=== PATIENT | male | born 1970 | race Caucasian/White ===

== ENCOUNTER 2019-06-26 00:58 | Emergency (ER) | payer OTHER ==
[2019-06-26] MEDS ORDERED: ACETAMINOPHEN 325 MG TABLET PO ONE (01:15)
--- NOTE | 2019-06-26 02:52 | RADIOLOGY REPORT (SQ) ---
EXAM DESCRIPTION: XR CHEST 2 VIEWS COMPLETED DATE/TME: 06/26/2019 00:00 CLINICAL HISTORY: 48 years, Male, fever; productive cough COMPARISON: None. NUMBER OF VIEWS: 2 TECHNIQUE: 2 view chest LIMITATIONS: None. FINDINGS: Heart size normal. Lungs clear. No pneumothorax IMPRESSION: Negative chest copyright 2010 [employer]- All Rights Reserved
[2019-06-26] MEDS ORDERED: PENICILLIN G BENZATHINE 1.2 MILLION UNIT/2 ML DISP.SYRIN IM ONE (03:03)
[2019-06-26] MEDS ORDERED: DEXAMETHASONE SOD PHOS INJ 10 MG/1 ML VIAL IM ONE (03:08)
--- NOTE | 2019-06-26 03:13 | ER Document Report ---
HPI - HPI Time Seen by Provider: 06/26/19 02:57 Pain Level: 5 Context: 48-year-old male presents emergency department chief complaint fever, chills, sweats, sore throat since Thursday afternoon. Patient states that the symptoms came on suddenly he has pain with swallowing and has a feeling of mucus in the top of his throat. No cough. No shortness of breath, wheezing, no chest pain. No nausea/vomiting/diarrhea. No sick contacts. No other complaints - EENT EENT: REPORTS: Sore Throat Past Medical History - Social History Smoking Status: Current Every Day Smoker Frequency of alcohol use: None Drug Abuse: None Family History: None Patient has suicidal ideation: No Patient has homicidal ideation: No Vertical Provider Document - CONSTITUTIONAL Notes: PHYSICAL EXAMINATION: Reviewed vital signs and charting by RN GENERAL: Alert, interacts well. No acute distress. HEAD: Normocephalic, atraumatic. EYES: Pupils equal and round. Extraocular movements intact. ENT: Oral mucosa moist, tongue midline. 3+ bilateral tonsillar hypertrophy with erythema and bilateral exudate, submandibular lymphadenopathy NECK: Full range of motion. Trachea midline. Cervical lymphadenopathy bilateral LUNGS: Clear to auscultation bilaterally, no wheezes, rales, or rhonchi. No respiratory distress. HEART: Regular rate and rhythm. No murmur ABDOMEN: soft, non-tender. No distention. Bowel sounds present EXTREMITIES: Moves all 4 extremities spontaneously. No edema, No cyanosis. PSYCH: Normal affect, normal mood. SKIN: Warm, dry, normal turgor. No rashes or lesions noted. Course - Re-evaluation Re-evalutation: 06/26/19 03:12 Presentation of several days of sore throat in an otherwise well-appearing patient. Rapid strep is positive. History and exam are not consistent with a retropharyngeal abscess or peritonsillar abscess. Airway is patent. No difficulty handling oral secretions. Vitals within normal limits. Patient has been treated with an IM dose of penicillin. At this time will discharge with return precautions and follow-up recommendations. Verbal discharge instructions given a the bedside and opportunity for questions given. Medication warnings reviewed. Patient is in agreement with this plan and has verbalized understanding of return precautions and the need for primary care follow-up in the next 7 days. - Vital Signs Vital signs: Temp Pulse Resp BP Pulse Ox 99.5 F 114 H 17 129/81 H 98 06/26/19 02:00 06/26/19 01:12 06/26/19 02:00 06/26/19 01:12 06/26/19 02:00 Discharge - Discharge Clinical Impression: Streptococcal pharyngitis Condition: Good Disposition: HOME, SELF-CARE Additional Instructions: You have been diagnosed with strep throat based on a positive strep test. You have been treated with a dose of penicillin here in the emergency department and do not need any additional antibiotics. You have also been given a dose of steroids to help with your throat discomfort. Please continue to take ibuprofen 600 mg every 6 hours or Tylenol 1000 mg every 6 hours as needed for throat discomfort. You can also gargle with salt water. Continue to drink plenty of fluids. Follow-up with your primary care doctor in the next several days. Return if you become unable to swallow, have difficulty breathing, pass out, have persistent vomiting that prevents you from being able to tolerate fluids, or have any other symptoms that are concerning to you.
[2019-06-26 03:14] VITALS: BP 108/80
== END 2019-06-26 03:29 | disposition home or self-care (01) ==
LOC: ER 00:58
DX: J02.0 Streptococcal pharyngitis (principal); R50.9 Fever, unspecified; F17.200 Nicotine dependence, unspecified, uncomplicated
CPT/HCPCS: 99283; 96372; 87880; 71046; J0561; J1100